=== PATIENT | female | born 1950 | race Caucasian/White ===

== ENCOUNTER 2016-11-16 07:52 | Emergency (ER) | payer OTHER ==
[~2016-11-16] VITALS: Ht 157.5 cm; Wt 55.9 kg
[2016-11-16 08:38] LABS: HEMATOCRIT 41.4 % (36.0-46.0); MCH 30.2 PG (29.0-34.0); MCHC 32.6 G/DL (30.0-36.0); MCV 92.6 FL (83-99); PLATELET COUNT 194 K/uL (156-360); RBC DIS.WIDTH-CV 12.1 % (11.8-14.6); RBC DIS.WIDTH-SD 41.2 % (39-53); RED BLOOD COUNT 4.47 M/uL (3.80-5.20); WHITE BLOOD COUNT 6.4 K/uL (4.1-10.2)
[2016-11-16 08:48] LABS: CHLORIDE 106 mEq/L (99-109); POTASSIUM 4.1 mEq/L (3.7-5.4); SODIUM 140 mEq/L (136-147)
[2016-11-16 08:50] LABS: GLUCOSE 106 mg/dL (70-99)
[2016-11-16 08:51] LABS: ANION GAP 10 MEQ/L (2-14)
[2016-11-16 08:52] LABS: TOTAL BILIRUBIN 0.5 mg/dL (0.0-1.0)
[2016-11-16 08:54] LABS: ALKALINE PHOSPHATASE 62 IU/L (3-129); GFR ESTIMATE (CALCULATED) 28 mL/min/
[2016-11-16 08:55] LABS: UREA NITROGEN (BUN) 31 mg/dL (9-23)
[2016-11-16 09:28] LABS: ADD MIUA? NO; BILIRUBIN NEGATIVE; BLOOD NEGATIVE; COLOR YELLOW ((YELLOW)); GLUCOSE (STRIP) NEGATIVE; KETONES NEGATIVE; LEUKOCYTES NEGATIVE; NITRITE NEGATIVE; PROTEIN (STRIP) NEGATIVE; SPECIFIC GRAVITY 1.009 (1.000-1.030); UROBILINOGEN 0.2 MG/DL (0.2-1.0)
[2016-11-16] MEDS ORDERED: NORCO 5/3251 TABLET PO (09:59)
[2016-11-16] MEDS ORDERED: FLEXERIL5 MG PO (09:59)
[2016-11-16 10:44] VITALS: BP 154/101
== END 2016-11-16 11:21 | disposition home or self-care (01) ==
LOC: EME 07:52
PROVIDERS: Nurse Practitioner Family
PROC: 3E0234Z Introduction of Serum, Toxoid and Vaccine into Muscle, Percutaneous Approach (ICD-10-PCS; principal; 2016-11-16)
DX: S16.1XXA Strain of muscle, fascia and tendon at neck level, initial encounter (principal); S60.229A Contusion of unspecified hand, initial encounter; I12.9 Hypertensive chronic kidney disease with stage 1 through stage 4 chronic kidney disease, or unspecified chronic kidney disease; N18.9 Chronic kidney disease, unspecified; V49.40XA Driver injured in collision with unspecified motor vehicles in traffic accident, initial encounter; Y92.488 Other paved roadways as the place of occurrence of the external cause; Z23 Encounter for immunization
CPT/HCPCS: 71020; 73130; 80053; 81003; 85027; 99281; 99285